=== PATIENT | female | born 1995 | race Hispanic/Latino ===

== ENCOUNTER 2018-01-27 07:35 | Day surgery (SDC) | payer BC ==
[2018-01-21 17:16] LABS: Absolute Lymphocytes (CBC) 1.6 K/uL (0.7-4.9); Absolute Monocytes 0.5 K/uL (0.1-1.3); Absolute Neutrophil 6.7 K/uL (1.8-8.0); Basophils % 0.4 % (0-1.3); Eosinophils % 1.4 % (0-4.4); Hematocrit 39.7 % (36.0-45.0); MCH 30.2 pg (27.0-35.0); MCV 87.7 fL (80-100); MPV 8.8 fL (7.6-11.3); Monocytes % 5.8 % (3.3-12.3); RBC Red Blood Cell Count 4.53 M/uL (3.86-4.86)
[2018-01-26 15:04] LABS: Specific Gravity 1.025 (1.005-1.030)
[2018-01-27] MEDS ORDERED: Ringers Lactate 1,000 ML IV ONE (07:55)
[2018-01-27] MEDS ORDERED: CEFAZOLIN/SWI 1gm 1 GM/10 ML SYR ONE (07:55)
[2018-01-27 08:15] LABS: Specific Gravity >= 1.030 (1.005-1.030)
[2018-01-27] MEDS ORDERED: PROPOFOL 200 MG/20 ML VIAL IV ONE (08:52)
[2018-01-27] MEDS ORDERED: LIDOCAINE 1% MPF 2 ML AMPULE ONE (08:53)
[2018-01-27] MEDS ORDERED: FENTANYL CITR 100 MCG/2 ML ONE (08:57)
[2018-01-27] MEDS ORDERED: MIDAZOLAM HCL 2 MG/2 ML INJ ONE (08:58)
[2018-01-27] MEDS ORDERED: LIDOCAINE 1% W/EPI 1:100,000 MDV 50 ML VIAL ONE (09:23)
[2018-01-27] MEDS ORDERED: MEPERIDINE HCL 50 MG/ML AMP ONE (10:02)
--- NOTE | 2018-01-27 20:52 | OP ---
Date of Procedure: 01/27/2018 Surgeon: Cheryl Powell MD Preoperative Diagnosis: Removal of retained foreign body in the left upper extremity (Nexplanon impl ant). Failed removal in the office. Postoperative Diagnosis: Removal of retained foreign body in the left upper extremity (Nexplanon imp lant). Failed removal in the office. Procedure Performed: Removal of foreign body from the left upper extremity and (Nexplanon implant). Anesthesia: General. Complications: None. Drains: None. Specimen: Implant. Condition: The patient is stable. Description Of Procedure: After informed consent was verified, patient was taken back to the OR. Tyshawn maher was placed in a supine fashion on the operating table. After general anesthesia was given, her arm was laid out on the board laterally. Circumferential prep was done on the arm. It was draped appro priately. Lidocaine 1% mixed with 1:100,000 epinephrine 5 cc was injected. First the implant was located with the help of an ultrasound and the surface skin marking on top of it was made. Then, the local was gi damien. Incision was made with a 15-blade. Dissection was performed to subcutaneous plane by taken omar n with the help of the cautery. With push-spread technique and dissection down, carefully the blood vessels within the subcutaneous plane were taken down. The implant was embedded right on top of the muscle in the perimysium of muscle. This was incised with the help of a 15-blade and then the implan t was held with a hemostat and the proximal distal part of the implant had to be dissected and releas ed free. The entire implant was removed. This was sent off for pathology. Hemostasis was secured. The subcutaneous tissues were closed with help of 3-0 Vicryl in an interrupted fashion, then 4-0 Osmel ryl in a continuous running fashion for subcuticular closure. Steri-Strips placed. Lidocaine 10 cc with epi was still injected. The patient had PVCs the first time that this was given. Later she did well. Her blood pressure was slightly elevated as well as tachycardia. She was recovered from anes thesia and taken to PACU in stable condition. She will follow up with me in 1 week. One gram of Anc ef was given at the beginning of the case. MELVIN/DALJIT Voice ID: [id number] Report ID: [id number]
== END 2018-01-27 11:20 | disposition home or self-care (01) ==
LOC: OR 07:35
PROVIDERS: ATTEND Obstetrics & Gynecology
PROC: 0JPV0HZ Removal of Contraceptive Device from Upper Extremity Subcutaneous Tissue and Fascia, Open Approach (ICD-10-PCS; principal; 2018-01-27 08:30)
DX: T85.628A Displacement of other specified internal prosthetic devices, implants and grafts, initial encounter (principal); F17.200 Nicotine dependence, unspecified, uncomplicated
CPT/HCPCS: 36415; 81025; 85025; 86850; 86900; 86901; 88300; J0690; J2001; J2175; J2250; J3010

== ENCOUNTER 2020-01-31 12:07 | Inpatient (IN) | payer OTHER, BC ==
[2020-01-31] MEDS ORDERED: BUTORPHANOL 1 MG/ML INJ IV PRN (12:28)
[2020-01-31] MEDS ORDERED: Ringers Lactate 1,000 ML IV PRN (12:28)
[2020-01-31] MEDS ORDERED: CARBOPROST TROME 250 MCG/ML IM PRN (12:28)
[2020-01-31] MEDS ORDERED: PROMETHAZINE INJ 25 MG/ML AMP IM PRN (12:28)
[2020-01-31] MEDS ORDERED: METHYLERGONOVINE 0.2MG/ML AMP IM PRN (12:28)
[2020-01-31] MEDS ORDERED: Ringers Lactate 1,000 ML IV SCH (13:00)
[2020-01-31] MEDS ORDERED: OXYTOCIN/LR 20 UNIT/1,000 ML BAG IV SCH ×2 (13:00→21:00)
[2020-01-31 13:11] VITALS: BMI 34.3
[2020-01-31 14:05] LABS: Absolute Lymphocytes (CBC) 1.2 K/uL (0.7-4.9); Basophils % 0.4 % (0-1.3); Hematocrit 33.9 % (36.0-45.0); Lymphocytes % 14.3 % (15.3-44.8); MPV 10.8 fL (7.6-11.3); RBC Red Blood Cell Count 3.95 M/uL (3.86-4.86)
[2020-01-31] MEDS ORDERED: FENTANYL/BUPIVACAINE/NS/PF 200 MCG/100 ML BAG EP PRN (15:46)
[2020-01-31] MEDS ORDERED: FENTANYL CITR 100 MCG/2 ML IV ONE (17:00)
[2020-01-31] MEDS ORDERED: BUPIVACAINE 0.25% PF 30 ML VIAL IV ONE (17:00)
[2020-01-31 19:17] LABS: Urine Appearance CLEAR; Urine Bilirubin NEGATIVE (NEG); Urine Blood NEGATIVE (NEG); Urine Color YELLOW; Urine Glucose NEGATIVE (NEG); Urine Protein NEGATIVE (NEG); Urine Specific Gravity 1.015 (1.005-1.030); Urine Urobilinogen 0.2 mg/dL (0.2-1.0)
[2020-01-31 19:25] LABS: Urine Bacteria <20 /HPF (<20); Urine Culture Reflex Order NOT NEEDED; Urine Mucus 1+ /HPF (NONE SEEN); Urine RBC NONE SEEN /HPF (NONE SEEN)
[2020-01-31] MEDS ORDERED: FENTANYL CITR 100 MCG/2 ML IV PRN (19:25)
[2020-01-31] MEDS ORDERED: FENTANYL CITR 100 MCG/2 ML ONE (19:38)
[2020-01-31] MEDS ORDERED: Oxycodone HCl/Acetaminophen 1 TAB TAB PO PRN ×2 (20:31)
[2020-01-31] MEDS ORDERED: DOCUSATE NA/SENNA CONC 1 TAB PO PRN (20:31)
[2020-01-31] MEDS ORDERED: BISACODYL 10 MG RECTAL SUPP PR PRN (20:31)
[2020-01-31] MEDS ORDERED: DIPHENHYDRAMINE 25 MG TAB/CAP PO PRN (20:31)
[2020-01-31] MEDS ORDERED: IBUPROFEN 200 MG TAB PO PRN (20:31)
[2020-01-31] MEDS ORDERED: ACETAMINOPHEN 500 MG TAB PO PRN (20:31)
--- NOTE | 2020-01-31 21:10 | PREOPHP ---
Date of Admission: 01/31/2020 History Of Present Illness: This is a 24-year-old 2, para 1, 37 weeks 4 days, delivered her first at 37 weeks secondary to preeclampsia, came into the office today reporting spotting at 4 a.m. this morning. Exam showed the patient was 3 cm, 50%, vertex -1 station. Apparently, the p atient experienced rupture of membranes at that point, went home, got her closed and all the importan t thing she needed for labor and came to Labor and Delivery. She is on Pitocin at this point. Baby looks good. Vital signs are stable. No signs of preeclampsia. She is julian regularly. She i s now 3-1/2, possibly 4, 40-50% effaced, vertex -1 station. Fluid is clear. Full labor talk given. Anticipate delivery sometime later this evening. Father with hypertension. No allergies. No medic eufemia prior to admission other than vitamins and iron. Rh positive, immune to rubella, negat maria luisa beta strep screen. COVID negative. Physical Examination: HEENT: Clear. Pupils equal, round, and reactive to light and accommodation. Conjunctivae well perf used. No oral, lingual, or buccal lesions. Chest and Lungs: Clear. Heart: Without murmurs, thrills, heaves, or rubs on previous visits. Abdomen: Term size. Baby is vertex. The patient has +1 edema, but no signs of preeclampsia. Assessment And Plan: She is requesting epidural. She is being hydrated at this point and baby I thi nk is probably occiput posterior. Pros and cons of epidural prior to the baby rotating discussed. S he is in very good control right now, but apparently wished to get her epidural as soon as Dr. Lissa king arrives. Full discussion. MARIMAR/MODL Voice ID: [id number]
--- NOTE | 2020-01-31 21:16 | OP ---
Surgeon: Cr Bell MD A 24-year-old 2, para 1, at 37 weeks 4 days, history of preeclampsia at first , came in my office reporting spotting last night and irregular contractions, noted to be 3 cm with spontan eous rupture of membranes. Came to Labor and Delivery, started on Pitocin at 4 cm, requested and rec eived epidural anesthesia, went rapidly to complete second stage of about 15 minutes or less. Sponta neous vaginal delivery of an estimated 7 pound male infant, Apgars 9 and 9. Loose nuchal cord x1. V geronimo small first-degree laceration repaired with 2-0 chromic 4 stitches. Schultze delivery of the graeme centa, which inspected and noted to be intact and normal. She had an eccentric insertion of the cord , but otherwise normal. Estimated blood loss was less than 250 cc. Rh positive, immune to Rubella. COVID negative. Strep negative. Final Diagnoses: Term intrauterine at 37 weeks and 4 days, spontaneous labor. Rupture of membranes. Epidural anesthesia. Loose nuchal cord. BEBEC/VICKIL Voice ID: [id number] Report ID: [id number]
[2020-01-31 22:46] LABS: RPR (Rapid Plasma Reagin) NON-REACT (NON-REACT)
--- NOTE | 2020-02-01 09:59 | DS ---
Hospital Course: A 24-year-old, 2, para 1, 37 weeks 4 days, came in the office reporting spo tting and obviously had ruptured of membranes. Sent to Labor and Delivery, started on IV drip Pitoci n. She is Rh positive, immune to Rubella, negative Strep status, COVID status unknown. During the l abor, requested and received epidural anesthesia, second stage, very short, 15 minutes or less, spont aneous vaginal delivery of 6 pounds 3 ounces male , Apgars 9 and 9. Loose nuchal cord x1. Schu ltze delivery of the placenta, which was inspected and noted to have eccentric location of the umbili abilio cord, but otherwise normal and intact. Estimated blood loss is less than 250 mL. , th e patient is afebrile, ambulating, voiding. Lochia is normal. History of preeclampsia with first pr egnancy. She has had a couple of elevated blood pressures, but I do not feel she has preeclampsia. Requests no analgesics on dismissal. Tdap and flu shots have been offered. No post epidural problem s. Final Diagnoses: Intrauterine gestation, 37 weeks 4 days, spontaneous rupture of membranes, vaginal delivery, epidural anesthesia, Tdap and flu shots offered. MARIMAR/DALJIT Voice ID: [id number] Report ID: [id number]
[2020-02-01] MEDS ORDERED: Tdap (Diph,Pertuss(Acell),Tet Vac) 0.5 ML SYR IMVAC ONE (12:39)
[2020-02-01 20:17] VITALS: BP 145/80; TEMP 99.3
[2020-02-02 18:15] LABS: HBsAG Nonreactive (Nonreactive)
== END 2020-02-01 22:30 | disposition home or self-care (01) | DRG 807 ==
LOC: 2ND-WC 12:07
PROVIDERS: ADMIT Specialist; ATTEND Specialist
PROC: 10E0XZZ Delivery of Products of Conception, External Approach (ICD-10-PCS; principal; 2020-01-31)
PROC: 0HQ9XZZ Repair Perineum Skin, External Approach (ICD-10-PCS; 2020-01-31)
DX: O70.0 First degree perineal laceration during delivery (principal); Z37.0 Single live birth; O75.5 Delayed delivery after artificial rupture of membranes; Z3A.37 37 weeks gestation of pregnancy; Z20.828 Contact with and (suspected) exposure to other viral communicable diseases
CPT/HCPCS: 36415; 81001; 85025; 86592; 86901; 87340; 90471; 90715; J2210; J2590; J3010; J7120; U0003

== ENCOUNTER 2021-03-15 09:35 | Inpatient (IN) | payer OTHER, BC ==
[2021-03-15 10:39] LABS: Urine Appearance CLEAR (Clear); Urine Bilirubin NEGATIVE (Negative); Urine Blood NEGATIVE (Negative); Urine Color YELLOW (Yellow); Urine Glucose NEGATIVE (Negative); Urine Protein 1+ (Negative); Urine Specific Gravity 1.015 (1.005-1.030)
[2021-03-15 10:41] LABS: Urine Microscopic Reflex ORDER UMIC
[2021-03-15 10:49] LABS: Urine Amorphous Sediment 1+ /HPF (NONE SEEN); Urine Bacteria <20 /HPF (<20); Urine Mucus 1+ /HPF (NONE SEEN); Urine RBC <5 /HPF (NONE SEEN)
[2021-03-15 10:54] LABS: ALT/SGPT 15 U/L (12-78); AST/SGOT 13 U/L (15-37); Albumin 2.3 g/dL (3.4-5.0); Alkaline Phosphatase 153 U/L (45-117); BUN Blood Urea Nitrogen 5 mg/dL (7-18); Bicarbonate 23 mmol/L (21-32); Bilirubin Total 0.3 mg/dL (0.2-1.0); Glucose Level 86 mg/dL (74-106); Potassium 3.8 mmol/L (3.5-5.1); Protein, Total 6.4 g/dL (6.4-8.2); Sodium Level 140 mmol/L (136-145)
[2021-03-15 11:00] LABS: Absolute Lymphocytes (CBC) 1.4 K/uL (0.7-4.9); Basophils % 0.6 % (0-1.3); Lymphocytes % 17.1 % (15.3-44.8); MPV 10.3 fL (7.6-11.3); RBC Red Blood Cell Count 4.12 M/uL (3.86-4.86)
[2021-03-15] MEDS ORDERED: Ringers Lactate 1,000 ML IV PRN (11:50)
[2021-03-15] MEDS ORDERED: CARBOPROST TROME 250 MCG/ML IM PRN (11:50)
[2021-03-15] MEDS ORDERED: LIDOCAINE 1% MPF 30 ML VIAL SQ ONE (11:56)
[2021-03-15] MEDS ORDERED: FENTANYL/BUPIVACAINE/NS/PF 200 MCG/100 ML BAG EP PRN (11:57)
[2021-03-15] MEDS ORDERED: BUPIVACAINE 0.25% PF 10 ML VIAL IJ PRN (11:57)
[2021-03-15] MEDS ORDERED: FENTANYL CITR 100 MCG/2 ML IV ONE (11:57)
[2021-03-15] MEDS ORDERED: OXYTOCIN/LR 20 UNIT/1,000 ML BAG IV SCH (12:00)
[2021-03-15] MEDS ORDERED: Ringers Lactate 1,000 ML IV SCH ×2 (12:00→18:00)
[2021-03-15 12:21] VITALS: BMI 34.7
[2021-03-15 12:51] LABS: Absolute Lymphocytes (CBC) 1.5 K/uL (0.7-4.9); Basophils % 0.4 % (0-1.3); Hematocrit 36.1 % (36.0-45.0); Lymphocytes % 16.7 % (15.3-44.8); MPV 10.7 fL (7.6-11.3); RBC Red Blood Cell Count 4.13 M/uL (3.86-4.86)
[2021-03-15] MEDS ORDERED: METHYLERGONOVINE 0.2MG/ML AMP IM ONE (13:14)
[2021-03-15] MEDS ORDERED: miSOPROStoL 100 MCG TAB PO ONE (15:56)
[2021-03-15] MEDS ORDERED: BISACODYL 10 MG RECTAL SUPP PR PRN (17:57)
[2021-03-15] MEDS ORDERED: Oxycodone HCl/Acetaminophen 1 TAB TAB PO PRN (17:57)
[2021-03-15] MEDS ORDERED: METHYLERGONOVINE 0.2MG/ML AMP IM PRN (17:57)
[2021-03-15] MEDS ORDERED: Ringers Lactate 2,000 ML IV ONE (18:31)
[2021-03-15] MEDS ORDERED: HYDRALAZINE HCL 20 MG/ML VIAL IV ONE (19:40)
[2021-03-15] MEDS ORDERED: HYDRALAZINE HCL 20 MG/ML VIAL ONE (19:44)
[2021-03-15] MEDS ORDERED: LABETALOL HCL 100 MG TAB ONE (22:29)
[2021-03-15] MEDS: LABETALOL HCL 100 MG TAB PO SCH (22:30)
[2021-03-16] MEDS: IBUPROFEN 600 MG TAB PO PRN ×2 (01:08→15:55)
[2021-03-16] MEDS: LABETALOL HCL 100 MG TAB PO SCH ×2 (09:00→21:12)
[2021-03-16 21:05] LABS: RPR (Rapid Plasma Reagin) NON-REACT (NON-REACT)
[2021-03-17 08:48] VITALS: TEMP 97.5
[2021-03-17] MEDS: LABETALOL HCL 100 MG TAB PO SCH (08:51)
[2021-03-17 08:56] VITALS: BP 142/79
--- NOTE | 2021-03-17 13:12 | DS ---
Date of Discharge: 03/17/2021 Final Discharge Diagnoses: 1.Intrauterine at 38 weeks of gestation, delivered. 2.Gestational hypertension. 3.Single live . Hospital Course: China Atkinson is a patient of Dr. Bell. She is a 25-year-old, G3, P2 f emale. Based on her first trimester ultrasound, she is at 38 weeks of gestation, [facility], headaches, abdominal pain. She has contractions every 5 minutes apart. Cervix is almost 3 cm, 50% effaced. During the initial evaluation, some blood pressure was high in the range of 160/90s. However, due to the excitement and later settled down, the patient's blood pre ssure was much better. The patient denies any discomfort at this time and holding contraction. She does have a prior history of preeclampsia and history of fast labor. Because there was an early hosp [facility] labor going and gestational hypertension, I strongly feel, we have discussed about augmentation on labor. Risks, benefits, options all informed. The patient agreed. Artificial rupture of membran e was done with some Pitocin given. She had her baby fairly quickly during the next few hours. She had an epidural regional anesthesia. She underwent a normal spontaneous vaginal delivery without any complications. She has a first-degree vulva tear and that was repaired. H and H were st able. However, during the recovery time, there was another few episodes of high blood pre ssure. Therefore, I have placed her on labetalol 200 mg b.i.d. She tends to respond very well. Dur ing the admission workup, I have obtained blood profile showing platelet count within the normal limi ts with the liver enzymes were all normal. On clinical exam and overall evaluation, I do not feel li ke the patient is preeclamptic and therefore only antihypertensive medication given as needed. During the exam, her uterus was normal and firm and with a minimal amount of lochia and on the morning of 03/17/2021, the patient was examined and she was sent home. Disposition: Home. Condition: Stable and improved. Prescription: 1.Ibuprofen 800 mg #20 one tab p.o. t.i.d. p.r.n. for pain. 2.Labetalol 200 mg #60 one tab p.o. b.i.d., no refills. Followup: The patient will be calling Dr. Bell's office for a 4-6 weeks followup at that time. Con tinuation of pain control or antihypertensive and issues will be addressed during that rufina eTerri RAMOS/DALJIT Voice ID: [id number] Report ID: [id number]
[2021-03-20 03:09] LABS: HBsAG Nonreactive (Nonreactive)
== END 2021-03-17 11:10 | disposition home or self-care (01) | DRG 807 ==
LOC: L&D 09:35 → 2ND-WC 11:37
PROVIDERS: ADMIT Specialist; ATTEND Specialist
PROC: 10E0XZZ Delivery of Products of Conception, External Approach (ICD-10-PCS; principal; 2021-03-15)
PROC: 0HQ9XZZ Repair Perineum Skin, External Approach (ICD-10-PCS; 2021-03-15)
PROC: 10907ZC Drainage of Amniotic Fluid, Therapeutic from Products of Conception, Via Natural or Artificial Opening (ICD-10-PCS; 2021-03-15)
DX: O70.0 First degree perineal laceration during delivery (principal); Z37.0 Single live birth; O13.4 Gestational [pregnancy-induced] hypertension without significant proteinuria, complicating childbirth; Z3A.38 38 weeks gestation of pregnancy; Z20.822 Contact with and (suspected) exposure to COVID-19
CPT/HCPCS: 36415; 80053; 81003; 81015; 85014; 85025; 86592; 86901; 87086; 87088; 87340; J0360; J2210; J2590; J3010; J7120; U0003

== ENCOUNTER 2024-03-15 10:01 | Emergency (ER) | payer BC, OTHER, SELFPAY ==
--- OUTSIDE RECORDS SUMMARY | 2024-03-15 10:04 | XMS REPORT | Continuity of Care Document ---
Author Name Unknown Address [address] [place], [place] [id number] [place] [address] thconnect Address 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 Name Role Phone [email or web address]_Kadiyala_S Attending Clinician Kirka ble [email or web address]_Kadiyala_S Admitting Clinician Unavaila ble Payers Payer Name Policy Type Policy Number Effective Date Expirati on Date Source [place] [id number] 2023 00:00:00 [employer] [id number] 2019 00:00:00 Problems Condition Name Condition Details Condition Category Status Onset Date Resolution Date Last Treatment Date Treating Clinician Comments Source Overweight Overweight Problem Active 06-17 00:00: 00 [facility] Body mass index 25-29 - overweight Body Mass Index 25-29 - Overweight Problem Active 06-17 00:00: 00 [facility] Nicotine dependence Nicotine Dependence Problem Active 01-21 00:00: 00 [facility] 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 device Complicati on of Internal Prosthetic Device Problem Active 01-21 00:00: 00 [facility] Surveillan ce of subcutaneo us contracept maria luisa implant Surveillan ce of Subcutaneo us Contracept maria luisa Implant Problem Active 01-21 00:00: 00 [facility] Pain of breast Pain of Breast Problem Active 09-04 00:00: 00 [facility] Fibrocysti c change of left breast Fibrocysti c Change of Left Breast Problem Active 09-04 00:00: 00 [facility] Polymenorr hea Polymenorr hea Problem Active 06-12 00:00: 00 [facility] Irregular periods Irregular Periods Problem Active 06-12 00:00: 00 [facility] Gynecologi abilio examinatio n abnormal Gynecologi abilio Examinatio n Abnormal Problem Active 06-12 00:00: 00 [facility] Excessive menstruati on with irregular cycle Excessive Menstruati on with Irregular Cycle Problem Active 06-12 00:00: 00 [facility] Social History Smoking Status Start Date Stop Date Source Never Smoker [facility] Medications Ordered Medication Name Filled Medication Name Start Date Stop Date Current Medication? Ordering Clinician Indication Dosage Frequency Signature (SIG) Comments Components Source Sprintec (28) 0.25 mg-35 mcg tablet 1 tablet; Once a day; 28 day(s) Sprintec (28) 0.25 mg-35 mcg tablet 1 tablet; Once a day; 28 day(s) No Sprintec (28) 0.25 mg-35 mcg tablet 1 tablet; Once a day; 28 day(s) [facility] Vital Signs Vital Name Observation Time Observation Value Comments S ource Body Weight 2024-02-12 00:00:00 177.2 [lb_av] [facility] BMI (Body Mass Index) 2024-02-12 00:00:00 28.6 kg/m2 [facility] BP Diastolic 2024-02-12 00:00:00 84 mm[Hg] [facility] BP Systolic 2024-02-12 00:00:00 130 mm[Hg] [facility] Height 2024-02-12 00:00:00 66 [in_i] [facility] Encounters Start Date/Time End Date/Time Encounter Type Admission Type Attending Clinicians Care Facility Care Department Encounter ID Source 2024-02-12 00:00:00 2024-02-12 00:00:00 LADONNA De Paz: [address], [place] [address] , Ph. [facility] - GC_GCBZW_[facility]* [id number] [facility] 2023-11-20 00:00:00 2023-11-20 00:00:00 Cheryl Powell MD: [address], [place] [address] , Ph. [facility] - GC_GCBZW_[facility]* [id number] [facility] 2023-08-13 00:00:00 2023-08-13 00:00:00 Outpatient GC_GCBZW_Ka diyala_S PRIV PRIV [id number] [facility] 2023-08-05 00:00:00 2023-08-05 00:00:00 Cheryl Powell MD: [address] [place] [address] S, [address], [place] [address] , Ph. GC_GCBZW_Ka diyala_S PRIV [facility] - GC_GCBZW_Aruna [facility]* [id number] [facility] 2023-07-24 00:00:00 2023-07-24 00:00:00 Outpatient GC_GCBZW_Ka diyala_S PRIV PRIV [id number] [facility] 2023-07-16 00:00:00 2023-07-16 00:00:00 Outpatient GC_GCBZW_Ka diyala_S PRIV PRIV [id number] [facility] 2023-06-18 00:00:00 2023-06-18 00:00:00 Outpatient GC_GCBZW_Ka diyala_S PRIV PRIV [id number] [facility] 2023-05-12 00:00:00 2023-05-12 00:00:00 Outpatient GC_GCBZW_Ka diyala_S PRIV PRIV [id number] [facility] 2023-03-10 00:00:00 2023-03-10 00:00:00 Outpatient GC_GCBZW_Ka diyala_S PRIV PRIV [id number] [facility] 2023-03-06 00:00:00 2023-03-06 00:00:00 Outpatient GC_GCBZW_Ka diyala_S PRIV PRIV [id number] [facility] 2023-02-15 00:00:00 2023-02-15 00:00:00 Outpatient GC_GCBZW_Ka diyala_S PRIV PRIV [id number] [facility] 2023-02-15 00:00:00 2023-02-15 00:00:00 Outpatient GC_GCBZW_Ka diyala_S PRIV PRIV [id number] [facility] 2023-02-12 00:00:00 2023-02-12 00:00:00 Outpatient GC_GCBZW_Ka diyala_S PRIV PRIV [id number] [facility] 2023-02-12 00:00:00 2023-02-12 00:00:00 Outpatient GC_GCBZW_Ka diyala_S PRIV PRIV [id number] [facility] 2023-01-18 00:00:00 2023-01-18 00:00:00 Outpatient GC_GCBZW_Ka diyala_S PRIV PRIV [id number] [facility] 2023-01-18 00:00:00 2023-01-18 00:00:00 Outpatient GC_GCBZW_Ka diyala_S PRIV PRIV [id number] [facility] 2023-01-18 00:00:00 2023-01-18 00:00:00 Outpatient GC_GCBZW_Ka diyala_S PRIV PRIV [id number] [facility] 2023-01-13 00:00:00 2023-01-13 00:00:00 Outpatient GC_GCBZW_Ka diyala_S PRIV PRIV [id number] [facility] 2022-11-21 00:00:00 2022-11-21 00:00:00 Outpatient GC_GCBZW_Ka diyala_S PRIV PRIV [id number] [facility]
[2024-03-15 10:30] LABS: Absolute Basophils 0.1 K/uL (0-0.5); Absolute Eosinophils 0.2 K/uL (0-0.5); Absolute Lymphocytes (CBC) 1.4 K/uL (0.7-4.9); Absolute Monocytes 0.4 K/uL (0.1-1.3); Absolute Neutrophil 5.2 K/uL (1.8-8.0); Basophils % 0.7 % (0-1.3); Hematocrit 38.2 % (36.0-45.0); Hemoglobin 13.2 g/dL (12.0-15.0); Lymphocytes % 19.3 % (15.3-44.8); MCH 30.8 pg (27.0-35.0); MCHC 34.5 g/dL (32.0-36.0); MCV 89.2 fL (80-100); Monocytes % 5.4 % (3.3-12.3); Neutrophils % 71.6 % (41.7-73.7); Nucleated Red Blood Cells % 0.1 % (0-0); Platelets 404 thou/uL (152-406); RBC Red Blood Cell Count 4.28 M/uL (3.86-4.86); Red Cell Distribution Width 12.7 % (12.1-15.2)
[2024-03-15 10:57] LABS: Anion Gap 8.9 mEq/L (5.0-15.0); Potassium 3.9 mEq/L (3.5-5.1)
--- NOTE | 2024-03-15 11:24 | EDPHYS ---
Physician Documentation [facility] Name: China Atkinson Age: 28 yrs Sex: Female : 1995 Arrival Date: 03/15/2024 Time: 10:01 Bed 14 Private MD: ED Physician Chanel Hinton HPI: 03/15 11:36 This 28 yrs old Female presents to ER via Ambulatory with complaints of gb1 Vaginal Bleeding. 11:36 -year-old male with vaginal bleeding for 6 days. Patient recently transitioned from the gb1 Depo shot to oral medications for in for contraception. She states that she has had pelvic cramps cramping but no discharge.. Historical: - Allergies: 10:05 No Known Allergies; ll1 - Home Meds: 10:10 control [Active]; ll1 - PMHx: 10:10 None; ll1 - PSHx: 10:10 None; ll1 - Immunization history:: Adult Immunizations up to date. - Infectious Disease History:: Denies. - Social history:: Smoking status: Patient reports the use of cigarette tobacco products, denies chronic smoking, but will smoke occasionally. Exam: 11:36 Constitutional: This is a well developed, well nourished patient who is awake, alert, gb1 and in no acute distress. Head/Face: Normocephalic, atraumatic. Eyes: Pupils equal round and reactive to light, extra-ocular motions intact. Lids and lashes normal. Conjunctiva and sclera are non-icteric and not injected. Cornea within normal limits. Periorbital areas with no swelling, redness, or edema. ENT: Nares patent. No nasal discharge, no septal abnormalities noted. Tympanic membranes are normal and external auditory canals are clear. Oropharynx with no redness, swelling, or masses, exudates, or evidence of obstruction, uvula midline. Mucous membranes moist. Neck: Trachea midline, no thyromegaly or masses palpated, and no cervical lymphadenopathy. Supple, full range of motion without nuchal rigidity, or vertebral point tenderness. No Meningismus. Chest/axilla: Normal chest wall appearance and motion. Nontender with no deformity. No lesions are appreciated. Cardiovascular: Regular rate and rhythm with a normal S1 and S2. No gallops, murmurs, or rubs. Normal PMI, no JVD. No pulse deficits. Respiratory: Lungs have equal breath sounds bilaterally, clear to auscultation and percussion. No rales, rhonchi or wheezes noted. No increased work of breathing, no retractions or nasal flaring. Abdomen/GI: Soft, non-tender, with normal bowel sounds. No distension or tympany. No guarding or rebound. No evidence of tenderness throughout. Back: No spinal tenderness. No costovertebral tenderness. Full range of motion. Skin: Warm, dry with normal turgor. Normal color with no rashes, no lesions, and no evidence of cellulitis. MS/ Extremity: Pulses equal, no cyanosis. Neurovascular intact. Full, normal range of motion. Vital Signs: 10:10 BP 147 / 96; Pulse 81; Resp 17; Temp 97.1; Pulse Ox 97% on R/A; Weight 79.38 kg; Height ll1 5 ft. 2 in. ; Pain 5/10; 11:10 BP 131 / 81; Pulse 78; Resp 17; Pulse Ox 99% on R/A; rs5 11:45 BP 125 / 79; Pulse 70; Resp 17; Pulse Ox 99% on R/A; rs5 10:10 Body Mass Index 32.01 (79.38 kg, 157.48 cm) ll1 10:10 Pain Scale: Adult ll1 MDM: 10:24 Medical Screening Exam initiated gb 11:36 Data reviewed: vital signs, nurses notes. 03/15 10:14 Order name: Basic Metabolic Panel; Complete Time: 11:07 03/15 10:14 Order name: CBC with Diff; Complete Time: 11: 03/15 10:14 Order name: IV Saline Lock; Complete Time: : gb03/15 10:14 Order name: Labs collected and sent; Complete Time: : 03/15 10:14 Order name: NPO; Complete Time: : Administered Medications: 11:38 Drug: Ketorolac IVP 30 mg IVP once Route: IVP; Site: right antecubital; rs5 12:01 Follow up: Response: No adverse reaction; Pain is decreased rs5 Disposition Summary: 03/15/24 11:24 Discharge Ordered Notes: Location: [facility] Condition: Stable gb1 Diagnosis - Abnormal uterine and vaginal bleeding, unspecified gb1 Followup: gb1 - With: Private Physician - When: - Reason: Recheck today's complaints Discharge Instructions: - Discharge Summary Sheet gb1 - Dysfunctional Uterine Bleeding gb1 Forms: - Medication Reconciliation Form gb1 - Antibiotic Education gb1 - Prescription Opioid Use gb1 - Patient Portal Instructions gb1 - Leadership Thank You Letter gb1 Prescriptions: - Ibuprofen 800 mg Oral Tablet - take 1 tablet ORAL route every 8 hours As needed take with food; 30 tablet; gb1 Refills: 0, Product Selection Permitted Signatures: Dispatcher [employer] Elis Jones RN RN ll1 Hiren Bellamy RN RN rs5 Chanel Hinton MD MD gb1
--- NOTE | 2024-03-15 11:24 | ER ---
Nurse's Notes [facility] Name: China Atkinson Age: 28 yrs Sex: Female : 1995 Arrival Date: 03/15/2024 Time: 10:01 Bed 14 Private MD: Diagnosis: Abnormal uterine and vaginal bleeding, unspecified Presentation: 03/15 10:10 Chief complaint: Patient states: Day 6 of vaginal bleeding but cramps are way worse ll1 than usual. Coronavirus screen: Client denies travel out of the [place] in the last 14 days. Ebola Screen: Patient denies travel to an Ebola-affected area in the 21 days before illness onset. Initial Sepsis Screen: Does the patient meet any 2 criteria? No. Patient's initial sepsis screen is negative. Does the patient have a suspected source of infection? No. Patient's initial sepsis screen is negative. Risk Assessment: Do you want to hurt yourself or someone else? Patient reports no desire to harm self or others. Onset of symptoms was March 09, 2024. 10:10 Method Of Arrival: Ambulatory ll1 10:10 Acuity: JM 3 ll1 Triage Assessment: 10:11 General: Appears uncomfortable, Behavior is calm, cooperative, appropriate for age. ll1 Pain: Complains of pain in pelvis Pain currently is 5 out of 10 on a pain scale. Quality of pain is described as aching, crampy. : Reports cramping, pain in suprapubic area vaginal bleeding that is moderate flow. Historical: - Allergies: 10:05 No Known Allergies; ll1 - Home Meds: 10:10 control [Active]; ll1 - PMHx: 10:10 None; ll1 - PSHx: 10:10 None; ll1 - Immunization history:: Adult Immunizations up to date. - Infectious Disease History:: Denies. - Social history:: Smoking status: Patient reports the use of cigarette tobacco products, denies chronic smoking, but will smoke occasionally. Screenin:00 [facility] ED Fall Risk Assessment (Adult) History of falling in the last 3 months, rs5 including since admission No falls in past 3 months (0 pts) Confusion or Disorientation No (0 pts) Intoxicated or Sedated No (0 pts) Impaired Gait No (0 pts) Mobility Assist Device Used No (0 pt) Altered Elimination No (0 pt) Score/Fall Risk Level 0 - 2 = Low Risk Oriented to surroundings, Maintained a safe environment. Abuse screen: Denies threats or abuse. Nutritional screening: No deficits noted. Tuberculosis screening: No symptoms or risk factors identified. Assessment: 10:05 General: Appears in no apparent distress. uncomfortable, Behavior is calm, cooperative. rs5 Pain: Complains of pain in pelvis Pain currently is 5 out of 10 on a pain scale. Quality of pain is described as aching, Is continuous. Neuro: Level of Consciousness is awake, alert, obeys commands, Oriented to person, place, time, situation. Cardiovascular: Patient's skin is warm and dry. Respiratory: Airway is patent Respiratory effort is even, unlabored, Respiratory pattern is regular, symmetrical. GI: Abdomen is round non-distended, Abd is soft and non tender X 4 quads. : pt reports vaginal bleeding. 10:05 EENT: No signs and/or symptoms were reported regarding the EENT system. Derm: Skin is rs5 intact, Skin is pink, warm \T\ dry. Musculoskeletal: Range of motion: intact in all extremities. 11:10 Reassessment: Patient and/or family updated on plan of care and expected duration. Pain rs5 level reassessed. Patient is alert, oriented x 3, equal unlabored respirations, skin warm/dry/pink. 11:50 Reassessment: Patient and/or family updated on plan of care and expected duration. Pain rs5 level reassessed. Patient is alert, oriented x 3, equal unlabored respirations, skin warm/dry/pink. Vital Signs: 10:10 BP 147 / 96; Pulse 81; Resp 17; Temp 97.1; Pulse Ox 97% on R/A; Weight 79.38 kg; Height ll1 5 ft. 2 in. ; Pain 5/10; 11:10 BP 131 / 81; Pulse 78; Resp 17; Pulse Ox 99% on R/A; rs5 11:45 BP 125 / 79; Pulse 70; Resp 17; Pulse Ox 99% on R/A; rs5 10:10 Body Mass Index 32.01 (79.38 kg, 157.48 cm) ll1 10:10 Pain Scale: Adult ll1 ED Course: 10:00 Patient has correct armband on for positive identification. Placed in gown. Bed in low rs5 position. Call light in reach. Side rails up X2. 10:00 No provider procedures requiring assistance completed. rs5 10:03 Patient arrived in ED. mr 10:05 Arm band placed on Patient placed in an exam room, on a stretcher. ll1 10:05 Inserted saline lock: 20 gauge in right antecubital area, using aseptic technique. rs5 Blood collected. Flushed with 10 mL NS. 10:06 Chanel Hinton MD is Attending Physician. gb1 10:11 Triage completed. ll1 10:12 Hiren Bellamy, RN is Primary Nurse. rs5 11:48 Provided Education on: discharge instructions . rs5 11:50 IV discontinued, intact, bleeding controlled, No redness/swelling at site. Pressure rs5 dressing applied. Administered Medications: 11:38 Drug: Ketorolac IVP 30 mg IVP once Route: IVP; Site: right antecubital; rs5 12:01 Follow up: Response: No adverse reaction; Pain is decreased rs5 Medication: 12:11 VIS not applicable for this client. rs5 Outcome: 11:24 Discharge ordered by . gb1 11:50 Patient left the ED. rs5 11:50 Discharged to home ambulatory, rs5 11:50 Condition: stable 11:50 Discharge instructions given to patient, family, Instructed on discharge instructions, follow up and referral plans. medication usage, Demonstrated understanding of instructions, follow-up care, medications, Prescriptions given X 1, Signatures: Jeaneth Darby, Reg Reg mr VilchisElis RN RN 1 Hiren Bellamy, GALILEA CALERO rs5 Chanel Hinton MD MD 1 Corrections: (The following items were deleted from the chart) 15:49 12:17 Patient left the ED. rs5 rs5 15:49 11:10 : Reports rs5 rs5
[2024-03-15] MEDS ORDERED: KETOROLAC 30 MG/ML INJ ONE (11:29)
[2024-03-15 12:34] VITALS: TEMP 97.1
[2024-03-15 12:40] VITALS: BP 131/81; O2SAT 99
== END 2024-03-15 12:17 | disposition home or self-care (01) ==
LOC: ER 10:01
DX: N93.9 Abnormal uterine and vaginal bleeding, unspecified (principal); F17.210 Nicotine dependence, cigarettes, uncomplicated
CPT/HCPCS: 36415; 80048; 85025; 96374; 99284

== ENCOUNTER 2024-05-05 19:50 | Inpatient (IN) | payer BC ==
--- OUTSIDE RECORDS SUMMARY | 2024-05-05 19:53 | XMS REPORT | Continuity of Care Document ---
Author Name Unknown Address [address] [place] [address] [place] [id number] [place] [address] thconnect Address [address] [place] [address] [address] [place] [address] Care Team Providers Care Crossing Guard Name Role Phone [email or web address]_Kadiyala_S Attending Clinician Jeff freitas [email or web address]_Kadiyala_S Admitting Clinician Jeff freitas Payers Payer Name Policy Type Policy Number Effective Date Expirati on Date Source [place] [id number] 2023 00:00:00 [employer] [id number] 2019 00:00:00 Problems Condition Name Condition Details [...] Irregular Periods Problem Active 06-12 00:00: [address] [facility] Gynecologi abilio examinatio n abnormal Gynecologi abilio Examinatio n Abnormal Problem Active 06-12 00:00: [address] [facility] Excessive menstruati on with irregular cycle Excessive Menstruati on with Irregular Cycle Problem Active 06-12 00:00: [address] [facility] Social History Smoking Status Start Date Stop Date Source Never Smoker [facility] Medications Ordered Medication Name Filled Medication Name Start Date Stop Date Current Medication? Ordering Clinician Indication Dosage Frequency Signature (SIG) Comments Components Source Estarylla 0.25 mg-35 mcg tablet TAKE 1 TABLET BY MOUTH EVERY DAY Estarylla 0.25 mg-35 mcg tablet TAKE 1 TABLET BY MOUTH EVERY DAY No Estarylla 0.25 mg-35 mcg tablet TAKE 1 TABLET BY MOUTH EVERY DAY [facility] ibuprofen 800 mg tablet TAKE 1 TABLET BY MOUTH EVERY 8 HOURS NEEDED WITH FOOD ibuprofen 800 mg tablet TAKE 1 TABLET BY MOUTH EVERY 8 HOURS NEEDED WITH FOOD No ibuprofen 800 mg tablet TAKE 1 TABLET BY MOUTH EVERY 8 HOURS NEEDED WITH FOOD [facility] Tri-Sprinte c (28) 0.18 mg(7)/0.215 mg(7)/0.25 mg(7)-35 mcg tablet Take 1 tablet every day by oral route for 84 days. Tri-Sprinte c (28) 0.18 mg(7)/0.215 mg(7)/0.25 mg(7)-35 mcg tablet Take 1 tablet every day by oral route for 84 days. No 1 Q1D Tri-Sprint ec (28) 0.18 mg(7)/0.21 5 mg(7)/0.25 mg(7)-35 mcg tablet Take 1 tablet every day by oral route for [address] [facility] Vital Signs Vital Name Observation Time Observation Value Comments S ource BP Systolic 2024-03-19 00:00:00 149 mm[Hg] [facility] Body Weight 2024-03-19 00:00:00 182.4 [lb_av] [facility] Height 2024-03-19 00:00:00 66 [in_i] [facility] BMI (Body Mass Index) 2024-03-19 00:00:00 29[facility]4 [facility] Diastolic 2024-03-19 00:00:00 84 mm[Hg] [facility] Body Weight 2024-02-12 00:00:00 177.2 [lb_av] [facility] BMI (Body Mass Index) 2024-02-12 00:00:00 28.6 kg/m2 [facility] BP Diastolic 2024-02-12 00:00:00 84 mm[Hg] [facility] BP Systolic 2024-02-12 00:00:00 130 mm[Hg] [facility] Height 2024-02-12 00:00:00 66 [in_i] [facility] Procedures Procedure Date / Time Performed Performing Clinicia n Source US TRANSVAGINAL 2024-03-19 00:00:00 [facility] Encounters Start Date/Time End Date/Time Encounter Type Admission Type Attending [facility] Facility Care Department Encounter ID Source 2024-03-19 00:00:00 2024-03-19 00:00:00 KB Borja: [address], [place] [id number] , Ph. [facility] - GC_GCBZW_Aruan Acosta* [id number] [facility] 2024-02-12 00:00:00 2024-02-12 00:00:00 LADONNA De Paz: [address], [place] [address] , Ph. [facility] - GC_GCBZW_Aruna Acosta* [id number] [facility] 2023-11-20 00:00:00 2023-11-20 00:00:00 Cheryl Powell MD: [address], [place] [phone] , Ph. [facility] - GC_GCBZW_Aruna Acosta* [id number] [facility] 2023-08-13 00:00:00 2023-08-13 00:00:00 Outpatient GC_GCBZW_Janine rasheed_Alexia [facility] [id number] [facility] 2023-08-05 00:00:00 2023-08-05 00:00:00 Cheryl Powell MD: [address] [place] [address] S, [address], [place] [address] , Ph. GC_GCBZW_Ka diyala_S PRIV [facility] - GC_GCBZW_La norris Acosta* [id number] [facility] 2023-07-24 00:00:00 2023-07-24 00:00:00 Outpatient GC_GCBZW_Ka diyala_S PRIV PRIV [id number] [facility] 2023-07-16 00:00:00 2023-07-16 00:00:00 Outpatient GC_GCBZW_Ka diyala_S PRIV PRIV [id number] [facility] 2023-06-18 00:00:00 2023-06-18 00:00:00 Outpatient GC_GCBZW_Ka diyala_S PRIV PRIV [id number] [facility] 2023-05-12 00:00:00 2023-05-12 00:00:00 Outpatient GC_GCBZW_Ka diyala_S PRIV PRIV [id number] [facility] 2023-03-10 00:00:00 2023-03-10 00:00:00 Outpatient GC_GCBZW_Ka diyala_S PRIV PRIV [id number] [facility] 2023-03-06 00:00:00 2023-03-06 00:00:00 Outpatient GC_GCBZW_Ka diyala_S PRIV PRIV [id number] [facility] 2023-02-15 00:00:00 2023-02-15 00:00:00 Outpatient GC_GCBZW_Ka diyala_S PRIV PRIV [id number] [facility] 2023-02-15 00:00:00 2023-02-15 00:00:00 Outpatient GC_GCBZW_Ka diyala_S PRIV PRIV [id number] [facility] 2023-02-12 00:00:00 2023-02-12 00:00:00 Outpatient GC_GCBZW_Ka diyala_S PRIV PRIV [id number] [facility] 2023-02-12 00:00:00 2023-02-12 00:00:00 Outpatient GC_GCBZW_Ka diyala_S PRIV PRIV [id number] [facility] 2023-01-18 00:00:00 2023-01-18 00:00:00 Outpatient GC_GCBZW_Ka diyala_S PRIV PRIV [id number] [facility] 2023-01-18 00:00:00 2023-01-18 00:00:00 Outpatient GC_GCBZW_Ka diyala_S PRIV PRIV [id number] [facility] 2023-01-18 00:00:00 2023-01-18 00:00:00 Outpatient GC_GCBZW_Ka diyala_S PRIV PRIV [id number] [facility] 2023-01-13 00:00:00 2023-01-13 00:00:00 Outpatient GC_GCBZW_Ka diyala_S PRIV PRIV [id number] [facility] 2022-11-21 00:00:00 2022-11-21 00:00:00 Outpatient GC_GCBZW_Ka diyala_S PRIV PRIV [id number] [facility] Results Test Description Test Time Test Comments Results Result Co mments Source [facility]
[2024-05-05] MEDS ORDERED: IPRATROPIUM BROM 0.5MG/2.5ML ONE (20:21)
[2024-05-05] MEDS ORDERED: ALBUTEROL 2.5 MG/3 ML NEB SOL ONE (20:21)
[2024-05-05] MEDS ORDERED: METHYLPREDNISOLONE 125 MG INJ ONE (20:43)
[2024-05-05 20:47] LABS: Absolute Eosinophils 0.6 K/uL (0-0.5); Absolute Monocytes 0.5 K/uL (0.1-1.3); Absolute Neutrophil 4.8 K/uL (1.8-8.0); Basophils % 0.6 % (0-1.3); Eosinophils % 8.1 % (0-4.4); Hematocrit 38.9 % (36.0-45.0); Hemoglobin 13.4 g/dL (12.0-15.0); MCH 30.2 pg (27.0-35.0); MCHC 34.4 g/dL (32.0-36.0); MCV 87.7 fL (80-100); MPV 8.6 fL (7.6-11.3); Monocytes % 7.6 % (3.3-12.3); Neutrophils % 69.7 % (41.7-73.7); Nucleated Red Blood Cells % 0.1 % (0-0); Platelets 361 thou/uL (152-406); RBC Red Blood Cell Count 4.44 M/uL (3.86-4.86); Red Cell Distribution Width 12.6 % (12.1-15.2)
[2024-05-05 21:03] LABS: Anion Gap 10.3 mEq/L (5.0-15.0); BUN Blood Urea Nitrogen 7 mg/dL (7-18); Bicarbonate 25 mEq/L (21-32); Glomerular Filtration Rate 126 ml/min (=/>90); Glucose Level 109 mg/dL (74-106); Potassium 3.3 mEq/L (3.5-5.1); Sodium Level 136 mEq/L (136-145)
[2024-05-05 21:04] LABS: Specific Gravity 1.011 (1.005-1.030)
[2024-05-05 21:05] LABS: Specific Gravity 1.011 (1.005-1.030); Sqamous Epithelial <5 /HPF (None Seen); Urine Bacteria <20 /HPF (<20); Urine Bilirubin NEGATIVE (Negative); Urine Blood Negative (Negative); Urine Clarity Turbid (Clear); Urine Color Light-Yellow (Yellow); Urine Culture Reflex Order NOT NEEDED; Urine Glucose NEGATIVE (Negative); Urine Ketones NEGATIVE (Negative); Urine Microscopic Reflex YN ORDER UMIC; Urine Nitrite NEGATIVE (Negative); Urine Protein NEGATIVE (Negative); Urine RBC <5 /HPF (None Seen); Urine Urobilinogen Normal (Normal); Urine WBC <5 /HPF (<5)
[2024-05-05 21:06] LABS: Troponin High Sensitivity < 3.0 pg/mL (<58.9)
--- NOTE | 2024-05-05 21:08 | RAD REPORT ---
EXAMINATION: ONE VIEW CHEST XR CLINICAL INDICATION: Congestion;Cough TECHNIQUE: Frontal chest projection is submitted. Examination is limited by patient positioning and t echnique. COMPARISON: No prior exam. FINDINGS: Mild bibasilar lung opacities are present likely representing pneumonia. The heart is normal in size. No displaced fractures identified.
[2024-05-05 21:24] LABS: SARS-CoV-2 Antigen CONTROL BLUE LINE VIS/BG OK; SARS-CoV-2 Antigen Rapid Res Negative (Negative)
[2024-05-05 21:28] LABS: D-Dimer 1.285 FEUug/mL (0-0.500); PT Prothrombin Time 12.4 SECONDS (9.4-12.5); PTT, Activated Partial Thromb 27.1 SECONDS (24.3-36.9); Protime INR 1.11
[2024-05-05 21:30] LABS: ALT/SGPT 56 U/L (13-56); AST/SGOT 37 U/L (15-37); Albumin 2.7 g/dL (3.4-5.0); Albumin/Globulin Ratio 0.6 (1.1-1.8); Alkaline Phosphatase 99 U/L (45-117); Bilirubin Total 0.4 mg/dL (0.2-1.0); Globulin 4.6 g/dL (2.3-3.5); Protein, Total 7.3 g/dL (6.4-8.2)
[2024-05-05 21:31] LABS: Bilirubin Direct < 0.2 mg/dL (0-0.2); Bilirubin Indirect, Calculated 0.2 mg/dL (0.2-0.8)
--- NOTE | 2024-05-05 22:32 | RAD REPORT ---
EXAMINATION: CTA CHEST PE CLINICAL INDICATION: Chest pain;Dyspnea TECHNIQUE: This examination was performed according to an angiographic protocol with 3D post-processi ng. This involves 3D reconstructions, MIPs, volume rendered images and/or shaded surface rendering. One or more of the following dose reduction techniques were used: Automated exposure control, adjustm ent of the mA and/or kV according to patient size, and/or iterative reconstruction. Unless otherwise specified, incidental findings do not require dedicated imaging follow-up. COMPARISON: No prior exam. FINDINGS: PULMONARY ARTERIES: Normal caliber. No evidence of pulmonary emboli to the subsegmental level. THORACIC AORTA: Normal caliber and configuration. LUNGS: Patchy airspace opacity is present in both lower lungs, greater on the right compatible with i nfectious etiology/pneumonia. PLEURA: Trace right pleural effusion. MEDIASTINUM AND LYMPH NODES: Multiple enlarged lymph nodes are seen in the mediastinum and right hilu m presumably reactive. OSSEOUS STRUCTURES AND CHEST WALL: Intact. UPPER ABDOMEN: No significant abnormalities. IMPRESSION: No evidence of pulmonary emboli to the subsegmental level. Patchy airspace opacity in both lower lungs, greater on the right likely infection/pneumonia. Enlarged lymph nodes in the mediastinum and right hilum presumably reactive. Follow-up imaging may be considered to document resolution after appropriate therapy.
[2024-05-05] MEDS ORDERED: CEFTRIAXONE 1000 MG/VIAL ONE (22:53)
[2024-05-05] MEDS ORDERED: AZITHROMYCIN 500 MG INJ IVPB ONE (22:53)
[2024-05-05] MEDS ORDERED: NA CHLORIDE 0.9% 250 ML ONE (22:54)
[2024-05-05] MEDS ORDERED: ONDANSETRON 4 MG/2 ML VIAL IV PRN (22:56)
[2024-05-05] MEDS ORDERED: ACETAMINOPHEN 500 MG TAB PO PRN (22:56)
[2024-05-05] MEDS ORDERED: IPRATROPIUM BROM 0.5MG/2.5ML NEB PRN (22:56)
[2024-05-05] MEDS ORDERED: ALBUTEROL 2.5 MG/3 ML NEB SOL NEB PRN (22:56)
--- NOTE | 2024-05-05 22:57 | EDPHYS ---
Physician Documentation [facility] Name: China Atkinson Age: 28 yrs Sex: Female : 1995 Arrival Date: 05/05/2024 Time: 19:50 Bed 20 Private MD: ED Physician Andrae Harrison HPI: 05/05 22:55 This 28 yrs old Female presents to ER via Ambulatory with complaints of Chest kb Pain, Breathing Difficulty, Flu Symptoms. 22:56 Patient is a 28-year-old female with a history of asthma who presents for chest pain, kb difficulty breathing, cough, fever, shortness of breath and wheezing that started 6 days ago and is gotten worse. states patient sounds like she is drowning whenever she lays down to sleep. Patient reports shortness of breath got worse today. 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 - Infectious Disease History:: Denies. - Social history:: Smoking status: Reported history of juuling and/or vaping. ROS: 20:24 Constitutional: As per HPI kb Exam: 20:23 Constitutional: This is a well developed, well nourished patient who is awake, alert, kb and in no acute distress. Head/Face: Normocephalic, atraumatic. ENT: Moist Mucous membranes Cardiovascular: Regular rate Respiratory: Respirations even and unlabored. No increased work of breathing. Talking in full sentences Abdomen/GI: Soft, non-tender. No distention Skin: Warm, dry with normal turgor. Normal color. MS/ Extremity: Pulses equal, no cyanosis. Neurovascular intact. Full, normal range of motion. Neuro: Awake and alert, GCS 15, oriented to person, place, time, and situation. 20:23 ECG was reviewed by the Attending Physician. Vital Signs: 19:56 BP 134 / 90; Pulse 110; Resp 19; Temp 99.5(O); Pulse Ox 92% on R/A; MAP 104 mmHg; tm6 Weight 81.65 kg; Height 5 ft. 6 in. ; Pain 5/10; 20:30 BP 125 / 93; Pulse 114; Resp 18; Pulse Ox 97% on R/A; rg5 21:21 BP 128 / 79; Pulse 107; Resp 18; Pulse Ox 94% on R/A; rg5 22:14 BP 117 / 82; Pulse 101; Resp 18; Temp 99(O); Pulse Ox 95% on R/A; Pain 0/10; rg5 23:45 BP 124 / 77; Pulse 92; Resp 18; Temp 98.8(O); Pulse Ox 99% on R/A; Pain 0/10; rg5 19:56 Body Mass Index 29.05 (81.65 kg, 167.64 cm) tm6 19:56 Pain Scale: Adult tm6 22:14 Pain Scale: Adult rg5 23:45 Pain Scale: Adult rg5 [place] Score: 20:05 Eye Response: spontaneous(4). Motor Response: obeys commands(6). Verbal Response: rg5 oriented(5). Total: 15. MDM: 19:52 Medical Screening Exam initiated kb 22:54 Differential Diagnosis: Bronchitis Influenza Upper Respiratory Infection Pneumonia. kb Data reviewed: vital signs, nurses notes. Consideration of Admission/Observation Patient was admitted/placed on observation. Escalation of care including admission/observation considered. Management of patient was discussed with the following: Hospitalist: Dr Reed accepts pt for admission. Historians other than the Patient: Spouse/Significant Other: . Counseling: I had a detailed discussion with the patient and/or guardian regarding the historical points, exam findings, and any diagnostic results supporting the discharge/admit diagnosis, lab results, radiology results, the need for further work-up and treatment in the hospital. 05/05 20:02 Order name: Basic Metabolic Panel; Complete Time: 21:06 kb 05/05 20:02 Order name: CBC with Diff; Complete Time: 20:51 kb 05/05 20:02 Order name: Troponin HS; Complete Time: 21:06 kb 05/05 20:02 Order name: Flu; Complete Time: 21:34 kb 05/05 20:02 Order name: SARS-COV-2 Antigen Rapid; Complete Time: 21:34 kb 05/05 20:02 Order name: Test, Urine; Complete Time: 21:06 kb 05/05 20:02 Order name: Urinalysis w/ reflexes; Complete Time: 21:06 kb 05/05 20:23 Order name: D-Dimer; Complete Time: 21:34 kb 05/05 21:10 Order name: Blood Culture Adult (2) kb 05/05 21:10 Order name: Lactate w/ 2H reflex if indic.; Complete Time: 22:29 kb 05/05 21:10 Order name: LFT's; Complete Time: 21:34 kb 05/05 21:18 Order name: Protime (+INR); Complete Time: 21:34 EDMS 05/05 21:18 Order name: PTT, Activated Partial Thromb; Complete Time: 21:34 EDMS 05/05 23:02 Order name: Lactate w/ 2H reflex if indic. EDMS 05/05 23:02 Order name: Magnesium EDMS 05/05 23:02 Order name: Phosphorus EDMS 05/05 23:02 Order name: Urinalysis w/ reflexes EDMS 05/05 23:02 Order name: Basic Metabolic Panel EDMS 05/05 23:02 Order name: Basic Metabolic Panel EDMS 05/05 23:02 Order name: CBC with Automated Diff EDMS 05/05 23:02 Order name: CBC with Automated Diff EDMS 05/05 23:02 Order name: Lipid Profile EDMS 05/05 23:02 Order name: Lipid Profile EDMS 05/05 23:02 Order name: Sputum Culture EDMS 05/05 20:02 Order name: XRAY Chest (1 view); Complete Time: 21:09 kb 05/05 21:35 Order name: CT Chest For PE Angio; Complete Time: 22:42 kb 05/05 20:02 Order name: EKG; Complete Time: 20:03 kb 05/05 20:02 Order name: EKG - Nurse/Tech; Complete Time: 20:18 kb 05/05 20:02 Order name: IV Saline Lock; Complete Time: 20:58 kb 05/05 20:02 Order name: Labs collected and sent; Complete Time: 20:58 kb 05/05 20:02 Order name: O2 Per Protocol; Complete Time: 20:18 kb 05/05 20:02 Order name: O2 Sat Monitoring; Complete Time: 20:18 kb EC:23 Rate is 105 beats/min. Rhythm is regular. Right axis deviation noted. [place] interval is kb normal at 144 msec. QRS interval is normal at 78 msec. QT interval is normal at 444 msec. Administered Medications: 20:26 Drug: Albuterol Inhalation 2.5 mg Inhalation once Route: Inhalation; rg5 20:26 Drug: Ipratropium Inhalation Aerosol 0.5 mg Inhalation once Route: Inhalation; rg5 20:30 Drug: MethylPrednisoLONE IVP 125 mg IVP once Route: IVP; Site: left antecubital; rg5 21:21 Follow up: Response: No adverse reaction rg5 22:46 CANCELLED (Physician Discretion): [id number] mg PO once kb 23:03 Drug: Rocephin IV 1 grams IV at calculated rate once; Given slow IV push per pharmacy rg5 instructions Route: IV; Rate: calculated rate; Site: left antecubital; 23:09 Drug: Zithromax IVPB 500 mg IVPB once over 1 hrs; mix in 250 mL NS Route: IVPB; Infused rg5 Over: 1 hrs; Site: left antecubital; 05/06 00:35 Follow up: IV Status: Completed infusion; IV Intake: 250ml rg5 Disposition Summary: 05/05/24 22:56 Hospitalization Ordered Notes: Hospitalization Status: Inpatient Admission kb Provider: Prince clarke Reed Location: Telemetry/MedSurg (Inpatient) kb Condition: Stable kb Problem: new kb Symptoms: are unchanged kb Bed/Room Type: Standard Room Assignment: 208(05/05/24 23:04) rv1 Diagnosis - Pneumonia, unspecified organism kb Forms: - Medication Reconciliation Form kb - SBAR form kb - Leadership Thank You Letter kb Signatures: Dispatcher [employer] EDMS Janneth Acosta, LADONNA-Rahul TAMAYOP-Sheela Kincaid rv1 Jyoti Bonilla RN RN tm6 Thor Reinoso RN RN rg5 Corrections: (The following items were deleted from the chart) 05/05 20:03 20:03 BASIC METABOLIC PANEL+C.LAB.BRZ ordered. EDMS EDMS 20:03 20:03 CBC+H.LAB.BRZ ordered. EDMS EDMS 20:03 20:03 Troponin High Sensitivity+C.LAB.BRZ ordered. EDMS EDMS 20:03 20:03 Influenza Screen (A \T\ B)+BA.LAB.BRZ ordered. EDMS EDMS 20:03 20:03 SARS-COV-2 Antigen Rapid+I.LAB.BRZ ordered. EDMS EDMS 20:03 20:03 Test, Urine+UC.LAB.BRZ ordered. EDMS EDMS 20:03 20:03 Urinalysis+U.LAB.BRZ ordered. EDMS EDMS 21:18 21:11 PROTIME (+INR)+COAG.LAB.BRZ ordered. EDMS EDMS 21:18 21:11 PTT, ACTIVATED+COAG.LAB.BRZ ordered. EDMS EDMS 22:46 22:43 AZITHromycin PO 500 mg PO once ordered. kb kb 23:04 22:56 kb rv1
--- NOTE | 2024-05-05 22:57 | ER ---
Nurse's Notes [facility] Name: China Atkinson Age: 28 yrs Sex: Female : 1995 Arrival Date: 05/05/2024 Time: 19:50 Bed 20 Private MD: Diagnosis: Pneumonia, unspecified organism Presentation: 05/05 19:58 Chief complaint: Patient states: 04/29 started with chest pains, difficulty breathing, tm6 cough, fevers, shortness of breath, wheezing. Coronavirus screen: Client denies travel out of the [place] in the last 14 days. Ebola Screen: Patient negative for fever greater than or equal to 101.5 degrees Fahrenheit, and additional compatible Ebola Virus Disease symptoms Patient denies exposure to infectious person. Patient denies travel to an Ebola-affected area in the 21 days before illness onset. No symptoms or risks identified at this time. Initial Sepsis Screen: Does the patient meet any 2 criteria? HR > 90 bpm. Does the patient have a suspected source of infection? No. Patient's initial sepsis screen is negative. Risk Assessment: Do you want to hurt yourself or someone else? Patient reports no desire to harm self or others. Onset of symptoms was April 29, 2024. 19:58 Method Of Arrival: Ambulatory tm6 19:58 Acuity: JM 3 tm6 Triage Assessment: 19:58 General: Appears in no apparent distress. Behavior is calm, cooperative. Pain: tm6 Complains of pain in chest Pain currently is 5 out of 10 on a pain scale. Pain began 04/29/24. EENT: No signs and/or symptoms were reported regarding the EENT system. Neuro: Level of Consciousness is awake, alert, obeys commands, Oriented to person, place, time, situation. Cardiovascular: Reports chest pain, since 04/29/24. Respiratory: Reports cough that is Airway is patent Respiratory effort is even, unlabored, Respiratory pattern is regular, symmetrical. GI: No signs and/or symptoms were reported involving the gastrointestinal system. Abdomen is flat, non-distended. : No signs and/or symptoms were reported regarding the genitourinary system. Derm: No signs and/or symptoms reported regarding the dermatologic system. Musculoskeletal: No signs and/or symptoms reported regarding the musculoskeletal system. 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 - Infectious Disease History:: Denies. - Social history:: Smoking status: Reported history of juuling and/or vaping. Screenin:05 [facility] ED Fall Risk Assessment (Adult) History of falling in the last 3 months, rg5 including since admission No falls in past 3 months (0 pts) Confusion or Disorientation No (0 pts) Intoxicated or Sedated No (0 pts) Impaired Gait No (0 pts) Mobility Assist Device Used No (0 pt) Altered Elimination No (0 pt) Score/Fall Risk Level 0 - 2 = Low Risk Oriented to surroundings, Maintained a safe environment, Hourly rounding (assess needs \T\ fall precautionary measures) done. Abuse screen: Denies threats or abuse. Nutritional screening: No deficits noted. Tuberculosis screening: No symptoms or risk factors identified. Assessment: 20:05 General: Appears in no apparent distress. comfortable, Behavior is calm, cooperative. rg5 20:05 Pain: Complains of pain in chest Pain does not radiate. Pain currently is 5 out of 10 rg5 on a pain scale. Quality of pain is described as aching, Pain began 2-3 days ago. Is intermittent. Neuro: Level of Consciousness is awake, alert, Oriented to person. Cardiovascular: Heart tones S1 S2 Patient's skin is warm and dry. Rhythm is sinus tachycardia. Respiratory: Reports shortness of breath cough that is productive, Airway is patent Trachea midline Respiratory effort is even, unlabored, Respiratory pattern is regular, symmetrical. GI: Abdomen is round non-distended, Abd is soft and non tender. : No signs and/or symptoms were reported regarding the genitourinary system. EENT: No deficits noted. Derm: Skin is intact, Skin is dry, Skin is normal. Musculoskeletal: Circulation, motion, and sensation intact. Range of motion: intact in all extremities. 21:00 Reassessment: No changes from previously documented assessment. Patient and/or family rg5 updated on plan of care and expected duration. Pain level reassessed. Patient is alert, oriented x 3, equal unlabored respirations, skin warm/dry/pink. 22:26 Reassessment: No changes from previously documented assessment. Patient and/or family rg5 updated on plan of care and expected duration. Pain level reassessed. Patient is alert, oriented x 3, equal unlabored respirations, skin warm/dry/pink. Vital Signs: 19:56 BP 134 / 90; Pulse 110; Resp 19; Temp 99.5(O); Pulse Ox 92% on R/A; MAP 104 mmHg; tm6 Weight 81.65 kg; Height 5 ft. 6 in. ; Pain 5/10; 20:30 BP 125 / 93; Pulse 114; Resp 18; Pulse Ox 97% on R/A; rg5 21:21 BP 128 / 79; Pulse 107; Resp 18; Pulse Ox 94% on R/A; rg5 22:14 BP 117 / 82; Pulse 101; Resp 18; Temp 99(O); Pulse Ox 95% on R/A; Pain 0/10; rg5 23:45 BP 124 / 77; Pulse 92; Resp 18; Temp 98.8(O); Pulse Ox 99% on R/A; Pain 0/10; rg5 19:56 Body Mass Index 29.05 (81.65 kg, 167.64 cm) tm6 19:56 Pain Scale: Adult tm6 22:14 Pain Scale: Adult rg5 23:45 Pain Scale: Adult rg5 [place] Score: 20:05 Eye Response: spontaneous(4). Motor Response: obeys commands(6). Verbal Response: rg5 oriented(5). Total: 15. ED Course: 19:52 Patient arrived in ED. im 19:52 Janneth Acosta FNP-C [facility]. kb 19:52 Andrae Harrison MD is Attending Physician. kb 19:58 Arm band placed on right wrist. tm6 19:59 Triage completed. tm6 20:05 Patient has correct armband on for positive identification. Bed in low position. Call rg5 light in reach. Side rails up X 1. Client placed on continuous cardiac and pulse oximetry monitoring. NIBP monitoring applied. groundwater monitoring technician on. Pulse ox on. NIBP on. Door closed. Noise minimized. Verbal reassurance given. 20:05 No provider procedures requiring assistance completed. Inserted saline lock: 20 gauge rg5 in left antecubital area, using aseptic technique. Blood collected. Flushed with 10 mL NS. Patient maintains SpO2 saturation greater than 95% on room air. 20:18 EKG done, by ED staff, reviewed by Janneth NARVAEZ. rg5 20:28 Thor Reinoso, GALILEA is Primary Nurse. rg5 21:04 XRAY Chest (1 view) In Process Unspecified. EDMS 22:14 CT Chest For PE Angio In Process Unspecified. EDMS 22:56 Prince Reed MD is Hospitalizing Provider. kb 05/06 00:34 Patient admitted, IV remains in place. intact, No redness/swelling at site. rg5 00:35 Provided Education on: need for admit. rg5 Administered Medications: 05/05 20:26 Drug: Albuterol Inhalation 2.5 mg Inhalation once Route: Inhalation; rg5 20:26 Drug: Ipratropium Inhalation Aerosol 0.5 mg Inhalation once Route: Inhalation; rg5 20:30 Drug: MethylPrednisoLONE IVP 125 mg IVP once Route: IVP; Site: left antecubital; rg5 21:21 Follow up: Response: No adverse reaction rg5 22:46 CANCELLED (Physician Discretion): [id number] mg PO once kb 23:03 Drug: Rocephin IV 1 grams IV at calculated rate once; Given slow IV push per pharmacy rg5 instructions Route: IV; Rate: calculated rate; Site: left antecubital; 23:09 Drug: Zithromax IVPB 500 mg IVPB once over 1 hrs; mix in 250 mL NS Route: IVPB; Infused rg5 Over: 1 hrs; Site: left antecubital; 05/06 00:35 Follow up: IV Status: Completed infusion; IV Intake: 250ml rg5 Medication: 05/05 20:05 VIS not applicable for this client. rg5 Intake: 05/06 00:35 IV: 250ml; Total: 250ml. rg5 Outcome: 05/05 22:56 Decision to Hospitalize by Provider. kb 05/06 00:34 Admitted to Med/surg accompanied by tony barnard Condition: stable Instructed on the need for admit, Demonstrated understanding of instructions, 00:48 Patient left the ED. rg5 Signatures: Dispatcher [employer] EDSC Janneth Acosta FNP-C FNP-Domonique Champagne Tawney, RN RN tm6 Thor Reinoso, RN RN rg5
--- NOTE | 2024-05-05 23:02 | P.HP ---
Certification for Inpatient Patient admitted to: Inpatient With expected LOS: >2 Midnights Practitioner: I am a practitioner with admitting privileges, knowledge of patient current condition, hospital course, and medical plan of care. Services: Services provided to patient in accordance with Admission requirements found in Title 42 Section 412.3 of the Code of Federal Regulations Patient History Date of Service: 05/05/24 Reason for admission: PNA History of Present Illness: Patient is a 28 year old female who is being admitted for bilateral PNA. Patient does not have a significant past medical history. She only takes cetirizine for chronic allergies. She is presenting with a 1 week course of fever, worsening productive cough and shortness of breath. Her symptoms are worsened when she lies down for a prolonged period of time. She spiked a fever of 102.8 degrees at home. She is in the ER accompanied by her . During my evaluation, patient was on room air. She has a normal WBC. Her D-dimer was elevated. Chest CT revealed extensive infiltrates involving the lower portion both lung boucher. Allergies No Known Allergies Allergy (Verified 01/21/18 16:33) Home Medications: Vitamins/Fe Sulf/FA [ Tablet] 1 each PO DAILY 01/31/20 Ibuprofen [Motrin] 800 mg PO TID PRN #20 tab 03/17/21 Labetalol HCl 200 mg PO BID 30 Days #60 tablet 03/17/21 - Past Medical/Surgical History Diabetic: No -: Vaginal delivery 2014 - Family History Father -: Hypertension - Social History Alcohol use: Yes CD- Drugs: No Caffeine use: No Physical Examination - Physical Exam General: Alert, In no apparent distress HEENT: Atraumatic, Normocephalic Neck: Supple Respiratory: Diminished Cardiovascular: No edema, Normal pulses, Regular rate/rhythm, Normal S1 S2 Musculoskeletal: No clubbing, No swelling, No contractures, No erythema, No tenderness, No warmth Neurological: Normal speech - Studies Laboratory Data (last 24 hrs) 05/05/24 05/05/24 05/05/24 21:10 21:10 20:50 WBC Hgb Hct Plt Count PT Cancelled 12.4 INR Cancelled 1.11 APTT Cancelled 27.1 Sodium Potassium BUN Creatinine Glucose Total Bilirubin 0.4 AST 37 ALT 56 Alkaline Phosphatase 99 05/05/24 05/05/24 20:40 20:40 WBC 6.90 Hgb 13.4 Hct 38.9 Plt Count 361 PT INR APTT Sodium 136 Potassium 3.3 L BUN 7 Creatinine 0.60 Glucose 109 H Total Bilirubin AST ALT Alkaline Phosphatase Microbiology Data (last 24 hrs): 05/05/24 20:50 Nasopharnyx Influenza Type A Antigen Screen - Final 05/05/24 20:50 Nasopharnyx Influenza Type B Antigen Screen - Final Assessment and Plan - Problems (Diagnosis) (1) Community acquired pneumonia Current Visit: Yes Status: Acute - Plan Assessment This is a 28-year-old female with no past medical history who is being admitted after she presented with fever, chills, shortness of breath and productive cough. She has extensive infiltrate involving the lower portion of both lung boucher. Patient does not appear to be septic. She is on room air. She tested negative for influenza Community-acquired pneumonia Plan: Will admit for antibiotics Patient is continued on azithromycin and ceftriaxone Follow respiratory cultures Will check for BNP Tylenol for fever and pain Zofran for nausea and vomiting Patient is full code - Advance Directives Does patient have a Living Will: No Does patient have a Durable POA for Healthcare: No
[2024-05-06 01:24] VITALS: BMI 29.0
[2024-05-06] MEDS: NA CHLORIDE 0.9% 1,000 ML IV SCH (01:44)
[2024-05-06 07:12] LABS: Absolute Lymphocytes (CBC) 0.6 K/uL (0.7-4.9); Absolute Monocytes 0.2 K/uL (0.1-1.3); Absolute Neutrophil 3.9 K/uL (1.8-8.0); Basophils % 0.2 % (0-1.3); Eosinophils % 0.4 % (0-4.4); Hematocrit 36.3 % (36.0-45.0); Hemoglobin 12.7 g/dL (12.0-15.0); Lymphocytes % 12.5 % (15.3-44.8); MCH 30.9 pg (27.0-35.0); MCHC 35.1 g/dL (32.0-36.0); MCV 88.1 fL (80-100); MPV 8.9 fL (7.6-11.3); Monocytes % 3.3 % (3.3-12.3); Neutrophils % 83.6 % (41.7-73.7); Nucleated Red Blood Cells % 0.1 % (0-0); Platelets 363 thou/uL (152-406); RBC Red Blood Cell Count 4.11 M/uL (3.86-4.86); Red Cell Distribution Width 12.8 % (12.1-15.2)
[2024-05-06 07:14] LABS: Anion Gap 7.6 mEq/L (5.0-15.0); Magnesium 2.5 mg/dL (1.6-2.4); Phosphorus 3.9 mg/dL (2.5-4.9); Potassium 4.6 mEq/L (3.5-5.1)
[2024-05-06] MEDS ORDERED: guaiFENesin 100 MG/5 ML UCUP PO PRN (07:15)
[2024-05-06] MEDS: AZITHROMYCIN IV 500 MG in NA CHLORIDE 0.9% 250 ML IVPB SCH ×2 (09:00→09:30)
[2024-05-06] MEDS: AZITHROMYCIN 500 MG INJ IVPB ONE (09:17)
[2024-05-06] MEDS: BENZONATATE 100 MG CAP PO SCH (09:36)
[2024-05-06] MEDS: CEFTRIAXONE 1,000 MG in NA CHLORIDE 0.9% 50 ML IVPB SCH (09:36)
[2024-05-06] MEDS: ENOXAPARIN 40 MG/0.4 ML SQ SCH (09:37)
--- NOTE | 2024-05-06 10:24 | P.PN ---
Subjective Date of Service: 05/06/24 Chief Complaint: PNA Subjective: Improving Patient states that she is starting to feel better, denied any fever or chill but productive cough but no hemoptysis, denied any shortness of breath or chest pain. She never had a pneumonia before, denied use cigarette but admitting to use vaping, history of intermittent bronchial asthma using Breo inhaler at home. Review of Systems Other: Consitutional; fever(-), chills (-), rigor(-), night sweat(-), unintentional weight loss(-), malaise (-) HEENT; diplopia (-), rhinorrhea (-), epistaxis (-), otorrhea (-), otalgia (-) Respiratory; shortness of breath (-), wheezing (-), cough (+), sputum (+), pleuritic chest pain (-) Cardiovascular; chest pain (-), peripheral edema (-), paroxysmal nocturnal dyspnea (-), orthopnea (-) Gastrointestinal; nausea (-), vomiting (-), abdominal pain (-), diarrhea (-), constipation (-), melena (-), hematochezia (-) Genitourinary; urinary frequency (-), dysuria (-), urgency (-), flank pain (-), gross hematuria (-), incontinence (-) Skin; rash (-), pruritus (-) 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 General: Not acutely ill looking, in no apparent distress,. HEENT: Normocephalic, atraumatic, nonicteric sclera, nonanemic conjunctive. Neck: Supple, without JVD or goiter or thyroid mass. Respiratory: Normal breathing effort, clear to auscultation bilaterally with crackle at lung bases, no wheezing or rhonchi. Cardiovascular: Regular rate and rhythm, S1, S2 normal, no murmur no gallop. Gastrointestinal: Normal bowel sounds, nondistended, nontender, No ascites, , No masses, no hepatosplenomegaly. Extremities : No clubbing, No peripheral edema, full range of motion, no deformity, no muscle atrophy. Integumentary: No rashes, petechia, suspected lesions. Lymphatics: No axilla or cervical lymphadenopathy. Neurology; alert awake oriented x3, no focal neurologic deficit, normal affection . mood and behavior. - Studies Laboratory Data (last 24 hrs) 05/05/24 05/05/24 05/05/24 21:10 21:10 20:50 WBC Hgb Hct Plt Count PT Cancelled 12.4 INR Cancelled 1.11 APTT Cancelled 27.1 Sodium Potassium BUN Creatinine Glucose Total Bilirubin 0.4 AST 37 ALT 56 Alkaline Phosphatase 99 05/05/24 05/05/24 20:40 20:40 WBC 6.90 Hgb 13.4 Hct 38.9 Plt Count 361 PT INR APTT Sodium 136 Potassium 3.3 L BUN 7 Creatinine 0.60 Glucose 109 H Total Bilirubin AST ALT Alkaline Phosphatase Microbiology Data (last 24 hrs): 05/05/24 20:50 Nasopharnyx Influenza Type A Antigen Screen - Final 05/05/24 20:50 Nasopharnyx Influenza Type B Antigen Screen - Final Assessment And Plan - Plan This is a 28 years old female patient with past medical history notable for intermittent bronchial asthma, non-smoker but using vaping who presented to emergency room for evaluation of 1 week of fever, productive cough and shortness of breath and found to have pneumonia by CT of the chest and admitted on the medical floor 1. Community-acquired pneumonia Afebrile overnight, no sepsis, no respiratory distress, good oxygenation on room air CT of the chest on admission personally reviewed no PE, patchy infiltration of both lower lobe, test negative for influenza AMB, I will order sputum culture, continue on azithromycin and ceftriaxone as there is no risk factor for Pseudomonas or Staphylococcus, discontinued normal saline infusion because patient tolerating oral diet well. DVT prophylaxis; low risk for DVT, I will start enoxaparin subcu Disposition; anticipating discharge home in 1 or 2 days
[2024-05-06 22:15] VITALS: O2SAT 95
[2024-05-07] MEDS ORDERED: PROMETHAZINE INJ 25 MG/ML AMP IV PRN (06:41)
--- NOTE | 2024-05-07 08:27 | P.DS ---
Admission Date: 05/05/24 Discharge Date: 05/07/24 Disposition: ROUTINE DISCHARGE Discharge Condition: GOOD Reason for Admission: PNA Brief History of Present Illness: This is a 28 years old female patient with past medical history notable for intermittent bronchial asthma, non-smoker but using vaping who presented to emergency room for evaluation of 1 week of fever, productive cough and shortness of breath and found to have pneumonia by CT of the chest and admitted on the medical floor Hospital Course: She was treated with IV ceftriaxone and azithromycin, DuoNeb, antitussive. She was responding to treatment well without any side effect, she was feeling better and remained afebrile, good oxygenation on room air. Her IV antibiotics was changed to oral levofloxacin 750 mg once a day. She is being discharged home. Plan is to continue levofloxacin 750 mg once a day to finish 7-day course and follow-up with her PCP. 1. Community-acquired pneumonia no sepsis, no respiratory distress, good oxygenation on room air CT of the chest on admission personally reviewed no PE, patchy infiltration of both lower lobe, test negative for influenza A and B, Sputum culture pending at the time of discharge #2 history of intermittent bronchial asthma without exacerbation #3 stress mild hyperglycemia Fasting blood sugar was 160, normal hemoglobin A1c at 5, good glycemic control without intervention Vital Signs/Physical Exam: Temp Pulse Resp BP Pulse Ox 98.4 F 86 18 117/65 96 05/07/24 04:00 05/07/24 04:00 05/07/24 04:00 05/07/24 04:00 05/07/24 04:00 Other Physical/Emotional Findings: - Physical Exam. General: Not acutely ill looking, in no apparent distress,. HEENT: Normocephalic, atraumatic, nonicteric sclera, nonanemic conjunctive. Neck: Supple, without JVD or goiter or thyroid mass. Respiratory: Normal breathing effort, clear to auscultation bilaterally with crackle at lung bases, no wheezing or rhonchi. Cardiovascular: Regular rate and rhythm, S1, S2 normal, no murmur no gallop. Gastrointestinal: Normal bowel sounds, nondistended, nontender, No ascites, , No masses, no hepatosplenomegaly. Extremities : No clubbing, No peripheral edema, full range of motion, no deformity, no muscle atrophy. Integumentary: No rashes, petechia, suspected lesions. Lymphatics: No axilla or cervical lymphadenopathy. Neurology; alert awake oriented x3, no focal neurologic deficit, normal affection . mood and behavior. Laboratory Data at Discharge: WBC 4.70 thou/uL (4.3-10.9) 05/06/24 06:44 Hgb 12.7 g/dL (12.0-15.0) 05/06/24 06:44 Hct 36.3 % (36.0-45.0) 05/06/24 06:44 Plt Count 363 thou/uL (152-406) 05/06/24 06:44 PT 12.4 SECONDS (9.4-12.5) 05/05/24 21:10 PT Cancelled 05/05/24 21:10 INR 1.11 05/05/24 21:10 INR Cancelled 05/05/24 21:10 APTT 27.1 SECONDS (24.3-36.9) 05/05/24 21:10 APTT Cancelled 05/05/24 21:10 Sodium 139 mEq/L (136-145) 05/06/24 06:44 Potassium 4.6 mEq/L (3.5-5.1) D 05/06/24 06:44 BUN 6 mg/dL (7-18) L 05/06/24 06:44 Creatinine 0.47 mg/dL (0.55-1.02) L 05/06/24 06:44 Glucose 160 mg/dL (74-106) H 05/06/24 06:44 Phosphorus 3.9 mg/dL (2.5-4.9) 05/06/24 06:44 Magnesium 2.5 mg/dL (1.6-2.4) H 05/06/24 06:44 Total Bilirubin 0.4 mg/dL (0.2-1.0) 05/05/24 20:50 AST 37 U/L (15-37) 05/05/24 20:50 ALT 56 U/L (13-56) 05/05/24 20:50 Alkaline Phosphatase 99 U/L (45-117) 05/05/24 20:50 Triglycerides 58 mg/dL (<150) 05/06/24 06:44 Cholesterol 179 mg/dL (<200) 05/06/24 06:44 HDL Cholesterol 52 mg/dL (40-60) 05/06/24 06:44 Cholesterol/HDL Ratio 3.44 05/06/24 06:44 Home Medications: Cetirizine HCl [All Day Allergy Relief] 1 tab PO DAILY 05/06/24 Norgestimate-Ethinyl Estradiol [Estarylla 0.25-0.035 mg Tablet] 1 tab PO DAILY 05/06/24 Albuterol Inhaler [Ventolin Inhaler*] 2 puff IH Q6H PRN #1 05/07/24 Benzonatate [Tessalon Perle*] 200 mg PO TID PRN #30 cap 05/07/24 levoFLOXacin [Levaquin*] 750 mg PO DAILY #4 tab 05/07/24 New Medications: levoFLOXacin [Levaquin*] 750 mg PO DAILY #4 tab Benzonatate [Tessalon Perle*] 200 mg PO TID PRN #30 cap PRN Reason: Cough Albuterol Inhaler [Ventolin Inhaler*] 2 puff IH Q6H PRN #1 PRN Reason: Shortness Of Breath Diet: Regular Activity: Ad caleb Followup: NONE,NONE [Primary Care Provider] -
[2024-05-07 08:54] VITALS: BP 126/56; TEMP 97.8
[2024-05-07] MEDS ORDERED: levoFLOXacin 750 MG TAB PO SCH (09:00)
--- NOTE | 2024-05-07 12:44 | EKG ---
Test Date: 2024-05-05 Test Time: 20:13:36 Product Manager: DRAGAN MEASUREMENT RESULTS: Intervals: Rate: 105 UT: 144 QRSD: 78 QT: 336 QTc: 444 [place]: P: 49 UT: 144 QRS: 107 T: 46 INTERPRETIVE STATEMENTS: Sinus tachycardia Rightward axis Borderline ECG Compared to ECG 12/18/2014 22:16:36 Sinus rhythm no longer present Electronically Signed On 05-07-24 12:41:28 CANAL STRUCTURE OPERATOR by Elmo Kruse
== END 2024-05-07 09:04 | disposition home or self-care (01) | DRG 195 ==
LOC: ER 19:50 → 2ND 22:56
PROVIDERS: ADMIT Internal Medicine; ATTEND Internal Medicine
DX: J18.9 Pneumonia, unspecified organism (principal); J45.909 Unspecified asthma, uncomplicated; R73.9 Hyperglycemia, unspecified; Z72.0 Tobacco use
CPT/HCPCS: 36415; 71045; 71275; 80048; 80061; 80076; 81001; 81025; 83036; 83605; 83735; 83880; 84100; 84145; 84484; 85025; 85379; 85610; 85730; 87040; 87070; 87205; 87804; 87807; 87811; 93005; 94760; 96365; 96375; 99285; J0696; J1650; J2919; J7030; J7050; J7613; J7644; Q9967